=== PATIENT | male | born 1985 | race Asian ===

== ENCOUNTER 2020-05-16 07:25 | Emergency (ER) | payer SELFPAY ==
[~2020-05-16] VITALS: Ht 165.1 cm; Wt 68.2 kg
[2020-05-16 07:27] VITALS: TEMP 97.7
[2020-05-16] MEDS ORDERED: PRILOSEC 20MG20 MG PO (07:31)
[2020-05-16 07:50] LABS: BASO % 0.2 % (0.0-2.0); EOS % 0.4 % (0-4.0); GRAN # 4.4 (1.4-6.5); GRAN % 52.4 % (42.2-75.2); HEMATOCRIT 45.9 % (42.0-52.0); HEMOGLOBIN 16.3 g/dl (13.5-18.0); LYMPH # 3.4 (1.2-3.4); MEAN CELL VOLUME 86 fl (80.0-100.0); MEAN CORPUSCULAR HEMOGLOBIN 31 pg (27.0-31.0); MEAN CORPUSCULAR HGB CONC 36 g/dl (33.0-37.0); MONO # 0.5 (0.1-0.6); MONO % 5.9 % (1.7-9.3); PLATELET COUNT 232 K/mm3 (130-400); RED BLOOD COUNT 5.35 M/mm3 (4.20-5.60); REDCELL DISTRIBUTION WIDTH-CV 12.3 % (11.5-14.5)
[2020-05-16] MEDS ORDERED: CARAFATE 1GM1 G PO (07:53)
[2020-05-16 08:12] LABS: ALANINE AMINOTRANSFERASE 28 U/L (4-49); ALBUMIN 4.8 gm/dL (3.5-5.0); ALKALINE PHOSPHATASE 152 U/L (50-136); ANION GAP 8 mmol/L (7-16); AST,SGOT 33 U/L (15-37); BILIRUBIN,TOTAL 2.2 mg/dL (0.0-1.0); BLOOD UREA NITROGEN 8 mg/dL (9-20); C-REACTIVE PROTEIN < 0.5 mg/dL (0.0-0.9); CALCIUM 9.7 mg/dL (8.4-10.2); CARBON DIOXIDE 27 mmol/L (22-30); CHLORIDE 104 mmol/L (98-107); CREATININE, serum 0.95 (0.66-1.25); GLUCOSE 116 mg/dL (74-106); LIPASE 127 U/L (23-300); POTASSIUM 3.5 mmol/L (3.4-5.0); SODIUM 138 mmol/L (137-145); TOTAL PROTEIN 8.3 gm/dL (6.4-8.2)
[2020-05-16 08:41] LABS: COLLECTION METHOD CLEAN CATCH
[2020-05-16] MEDS ORDERED: ZOFRAN ODT8 MG PO (08:48)
[2020-05-16 08:54] VITALS: BP 130/93; PULSE 79
[2020-05-16 09:07] LABS: PH 6 (5-8); SQUAMOUS EPITHELIAL None Seen /hpf; URINE APPEARANCE Clear; URINE BACTERIA None Seen /hpf; URINE BILIRUBIN Negative (NEGATIVE); URINE BLOOD Negative (NEGATIVE); URINE COLOR Straw; URINE GLUCOSE Negative (NEGATIVE); URINE KETONE Negative (NEGATIVE); URINE LEUKOCYTE ESTERASE Negative (NEGATIVE); URINE NITRATE Negative (NEGATIVE); URINE PROTEIN(semi-quant) Negative (NEGATIVE); URINE RBC None Seen /hpf; URINE UROBILINOGEN Negative (NEGATIVE)
== END 2020-05-16 08:55 | disposition home or self-care (01) ==
LOC: COL.ER 07:25
PROVIDERS: Emergency Medicine
DX: R10.13 Epigastric pain (principal); K21.9 Gastro-esophageal reflux disease without esophagitis
CPT/HCPCS: C9113; J2405; J7030

== ENCOUNTER 2020-05-25 06:43 | Day surgery (SDC) | payer OTHER ==
[~2020-05-25] VITALS: Ht 165.1 cm; Wt 66.0 kg
[~2020-05-25 06:43] MED LIST: CARAFATE 1GM1 G PO; PRILOSEC 20MG20 MG PO; ZOFRAN ODT8 MG PO
[2020-05-25 07:15] VITALS: BP 118/82; PULSE 87; TEMP 98.7
[2020-05-25] MEDS ORDERED: CARAFATE 1GM1 G PO (07:21)
--- NOTE | 2020-05-25 07:22 | NUR ---
TO JD AT 0654- CALL LIGHT IN [place] FRIEND AMELIA WILL BE HIS RIDE HOME
[2020-05-25 08:00] VITALS: BP 119/83; PULSE 84
--- NOTE | 2020-05-25 08:00 | NUR ---
Pateint returns to [facility] [address] per cart after having EGD and transfers from cart to recliner with two person assist. IV fluids infusing. Temp 98.2. IV fliuds infusing and allowed to rest.
[2020-05-25 08:15] VITALS: BP 110/85; PULSE 85
--- NOTE | 2020-05-25 08:15 | NUR ---
Sipping on water and eating applesauce.
[2020-05-25 08:30] VITALS: BP 112/77; PULSE 90
--- NOTE | 2020-05-25 08:30 | NUR ---
Tolerated applesauce and water. Denies difficulty swallowing.
--- NOTE | 2020-05-25 08:43 | NUR ---
Dr. Glez here to talk with the patient. All questions answered. IV discontinued and patient dresses self.
--- NOTE | 2020-05-25 09:00 | NUR ---
IV was discontinued and site free of redness. Ride here and taken to the front door per wheelchair by this RN and assisted into vehicle with instructions in hand.
== END 2020-05-25 09:00 | disposition home or self-care (01) ==
LOC: SDCO 06:43
DX: K21.9 Gastro-esophageal reflux disease without esophagitis (principal)
CPT/HCPCS: J2250; J3010; J7030

== ENCOUNTER → 2020-06-07 | Outpatient (CLI) | payer OTHER | LOC: COL.RAD 06:59 | DX: K21.9 Gastro-esophageal reflux disease without esophagitis (principal); K76.0 Fatty (change of) liver, not elsewhere classified ==

== ENCOUNTER → 2020-06-14 | Outpatient (CLI) | payer OTHER | LOC: COL.RAD 07:40 | DX: K21.9 Gastro-esophageal reflux disease without esophagitis (principal); K92.1 Melena | CPT/HCPCS: A9537; J2805 ==

== ENCOUNTER → 2020-12-28 | Outpatient (CLI) | payer OTHER | LOC: COL.RAD 11:53 | DX: E06.9 Thyroiditis, unspecified (principal) ==

== ENCOUNTER → 2021-01-10 | Outpatient (CLI) | payer OTHER | LOC: COL.RAD 12:00 | DX: R94.6 Abnormal results of thyroid function studies (principal); Z86.39 Personal history of other endocrine, nutritional and metabolic disease | CPT/HCPCS: A9516 ==